=== PATIENT | female | born 1980 | race Caucasian/White ===

== ENCOUNTER 2025-03-13 05:15 | Day surgery (SDC) | payer OTHER ==
[2025-03-07 12:07] LABS: BASO % 0.6 % (0.1-1.2); EOS # 0.28 (0.04-0.54); EOS % 3.5 % (0.7-7.0); HEMATOCRIT 33.4 % (34.1-44.9); LYMPH # 1.56 (1.18-3.74); LYMPH % 19.7 % (19.3-53.1); MEAN CORPUSCULAR HEMOGLOBIN 22.7 pg (25.6-32.2); MONO # 0.55 (0.24-0.82); NEUT # 5.44 (1.56-6.13); NEUT % 68.9 % (34.0-71.1); PLATELET COUNT 369 K/uL (163-369); RED BLOOD COUNT 4.36 M/uL (3.93-5.22); RED CELL DISTRIBUTION WIDTH 16.4 % (11.6-14.4)
[2025-03-07 12:08] LABS: HEMOGLOBIN 9.9 g/dL (11.2-15.7)
[2025-03-07 12:21] VITALS: BP 128/83
[2025-03-07 12:31] LABS: INR 1.02; PARTIAL THROMBOPLASTIN TIME 28.9 SECONDS (22.0-34.0); PROTHROMBIN TIME 11.1 SECONDS (9.0-11.5)
[2025-03-07 12:52] LABS: ALBUMIN 3.9 gm/dL (3.4-5.0); BILIRUBIN TOTAL 0.34 mg/dL (0.3-1.2); CALCIUM 9.7 mg/dL (8.5-10.1); CREATININE SERUM 0.73 mg/dL (0.55-1.02); GFR 85.83; GLOBULINA 3.9 G/DL (2.4-3.5); POTASSIUM 4.4 mEq/L (3.5-5.1); TOTAL PROTEIN 7.8 gm/dL (6.4-8.2)
[2025-03-07 13:27] LABS: URINE APPEARANCE Clear; URINE BILIRRUBIN Negative (NEGATIVE); URINE BLOOD Negative; URINE COLOR Yellow; URINE GLUCOSE Negative (NEGATIVE); URINE KETONE Negative (NEGATIVE); URINE LEUKOCYTE Negative; URINE NITRATE Negative; URINE PROTEIN Negative (NEGATIVE); URINE UROBILINOGEN 0.2 E.U./dl
[2025-03-07 13:30] LABS: URINE BACTERIA 800.3 uL (0.0-1933); URINE EPITHELIAL CELLS 56.7 uL (0.0-38.8); URINE RBC 6.6 uL (0.0-20.8); URINE WBC 1.8 uL (0.0-23.2)
[2025-03-07 13:35] LABS: URINE CAST 0.14 uL (0.0-1.40)
[2025-03-07 15:09] LABS: RH POSITIVE
[~2025-03-13] VITALS: Ht 154.9 cm; Wt 67.6 kg
[~2025-03-13 05:15] MED LIST: ADVIL100 M1 PO; MOTRIN IB200 MG PO
[2025-03-13] MEDS ORDERED: POVIDONE-IODINE 118 ML BOTT TOP ONE (07:20)
[2025-03-13] MEDS ORDERED: RINGERS SOLUTION,LACTATED 1,000 ML IV SCH (17:15)
== END 2025-03-13 14:15 | disposition home or self-care (01) ==
LOC: CIR.AMB 05:15
PROVIDERS: ATTEND Student in an Organized Health Care Education/Training Program
DX: N93.8 Other specified abnormal uterine and vaginal bleeding (principal); N80.03 Adenomyosis of the uterus